=== PATIENT | female | born 1940 | race Caucasian/White ===

== ENCOUNTER 2018-05-15 14:06 | Emergency (ER) | payer MEDICARE, SELFPAY ==
[2018-05-15 14:07] VITALS: BP 172/71; PULSE 79; RESP 16; TEMP 36.5; O2SAT 99
--- NOTE | 2018-05-15 14:11 | ED_ITS ---
HPI - Fall General Chief Complaint: Fall Stated Complaint: GLF Time Seen by Provider: 05/15/18 14:10 Source: EMS Mode of arrival: EMS Limitations: no limitations History of Present Illness HPI Narrative: Patient is a 77-year-old female who presents with head injury. She is walking at [employer] not pain attention when she fell backwards hitting her head. There was no loss of consciousness she denies any blood thinners. No numbness tingling or weakness. She denies any chest pain heart palpitations or other precursor symptoms. She has no other injuries complaining of head pain. Denies any nausea or vomiting. MD complaint: fall Onset (ago): minute(s) Fall from: standing Related Data Home Medications Medication Instructions Recorded Confirmed alendronate [Fosamax] 70 mg PO QWEEK 05/15/18 05/15/18 aspirin 81 mg PO DAILY 05/15/18 05/15/18 bupropion HCl 200 mg PO BID 05/15/18 05/15/18 cholecalciferol (vitamin D3) 1,000 unit PO DAILY 05/15/18 05/15/18 [Vitamin D3] cyanocobalamin (vitamin B-12) 1,000 mcg PO DAILY 05/15/18 05/15/18 [Vitamin B-12] krill oil 1 cap PO DAILY 05/15/18 05/15/18 lorazepam 0.5 mg PO BID PRN 05/15/18 05/15/18 mirabegron [Myrbetriq] 25 mg PO DAILY 05/15/18 05/15/18 vit C,Z-Du-dgyld-lutein-zeaxan 1 cap PO BID 05/15/18 05/15/18 [PreserVision AREDS 2] Allergies Allergy/AdvReac Type Severity Reaction Status Date / Time No Known Drug Allergies Allergy Verified 05/15/18 14:45 Review of Systems Review of Systems All systems reviewed & are unremarkable except as noted in HPI and below Constitutional Denies chills, Denies fever(s), Denies frequent falls, Denies lethargy and Denies weakness Eyes Denies change in vision, Denies diplopia, Denies loss of peripheral vision and Denies loss of vision ENT Ears, Nose, Mouth, and Throat: Denies vertigo, Denies dizziness and Denies neck pain Cardiovascular Denies chest pain, Denies irregular heart rhythm, Denies lightheadedness, Denies palpitations, Denies dyspnea, Denies dyspnea on exertion and Denies orthopnea Respiratory Denies cough, Denies dyspnea, Denies dyspnea on exertion and Denies wheezing Gastrointestinal Gastrointestinal: Denies abdominal pain, Denies change in bowel habits, Denies diarrhea, Denies nausea and Denies vomiting Musculoskeletal Denies neck pain Integumentary/Breasts Reports wounds (On head) Neurologic Denies vertigo, Denies dizziness, Denies frequent falls, Denies loss of vision and Denies weakness Endocrine Denies palpitations Hematologic/Lymphatic Denies easy bleeding and Denies easy bruising Allergic/Immunologic Denies wheezing Exam Initial Vital Signs Initial Vital Signs: Vital Signs Temperature 97.7 F 05/15/18 14:07 Pulse Rate 79 05/15/18 14:07 Respiratory Rate 16 05/15/18 14:07 Blood Pressure 172/71 H 05/15/18 14:07 Pulse Oximetry 99 05/15/18 14:07 GENERAL: Alert elderly female in no acute distress. Able to move herself from [facility] [place] HEENT: Head posterior left-sided scalp hematoma without laceration no crepitations no depression NECK: No vertebral tenderness no step-offs CARDIOVASCULAR: Regular rate and rhythm without murmurs, rubs or gallops. RESPIRATORY: Breath sounds equal bilaterally, no wheezes rales or rhonchi. ABDOMEN: Soft, nontender. Normoactive bowel sounds all 4 quadrants. No guarding or rebound. EXTREMITIES: Normal range of motion, no clubbing or edema. Neurovascularly intact. No gross bony deformities NEUROLOGICAL: Alert and oriented x4.Normal gait and speech. Cranial nerves II through XII grossly intact. Good zfpgva-ic-djxo, good mkas-et-rbfb, strength equal bilaterally, no dysarthria or aphasia, sensation in tact to soft touch bilaterally, no visual changes, no facial droop SKIN: Contusion left posterior head no laceration no other rash or signs of trauma. [facility] Social History Smoking Status: Former smoker Scores NIH Stroke Scale Level of Conciousness: Alert, keenly responsive Ask month/age: Answers both questions correctly. Open/close eyes, close hand: Performs both tasks correctly Best gaze horizontal: Normal Visual ochoa: No visual loss Facial palsy: Normal symetrical movement Left arm drift: No drift for full 10 sec Right arm drift: No drift for full 10 sec Left leg drift: No drift for full 10 sec Right leg drift: No drift for full 10 sec Limb ataxia: Absent Sensory on face/arms/legs: Normal, no sensory loss Best language: No aphasia, normal Dysarthria: Normal Extinction or inattention: No abnormality Total NIH Stroke scale score: 0 Course Orders Ordered: ED Orders 05/15/18 14:10 CT head/brain wo con Stat Vital Signs - 8 hr 05/15/18 14:07 05/15/18 15:31 Temperature 97.7 F Pulse Rate 79 83 Respiratory Rate 16 17 Blood Pressure 172/71 H Blood Pressure [Left Arm] 152/78 H Pulse Oximetry 99 100 MDM - Fall Imaging Data CT scan - head: Radiologist's impression: PROCEDURE: CT HEAD/BRAIN WO CON INDICATIONS: fell back hit head TECHNIQUE: Noncontrast 4.5 mm thick angled axial sections acquired from the foramen magnum to the vertex, with coronal and sagittal reformats. For radiation dose reduction, the following was used: automated exposure control, adjustment of mA and/or kV according to patient size. COMPARISON: None. FINDINGS: Image quality: Excellent. CSF spaces: Basal cisterns are patent. No extra-axial fluid collections. The ventricles are symmetric in size and shape. Brain: No intracranial bleeds or masses. There is cerebral volume loss for age , with resultant ventricular and sulcal prominence. There are periventricular and deep white matter chronic small vessel ischemic changes. There is intracranial internal carotid artery atherosclerosis. Skull and face: Calvarium and visualized facial bones appear intact, without suspicious lesions. There is a large left parietal subgaleal hematoma. Sinuses: Visualized sinuses and mastoids are clear. IMPRESSION: 1. No acute intracranial abnormalities. 2. Cerebral volume loss and chronic microvascular ischemic changes. 3. Large left parietal subgaleal hematoma. Dictated by: Kwabena Webb M.D. on 05/15/2018 at 14:42 Approved by: Kwabena Webb M.D. on 05/15/2018 at 14:44 Discharge Plan Departure Patient Disposition: Home, Self-Care Clinical Impression: Contusion of head Discharge Date/Time: 05/15/18 15:43 Interventions: ED Discharge Assessment Last Done: 05/15/18 15:42 Instructions: Closed Head Injury Activity Restrictions/Additional Instructions: *You have been diagnosed with head contusion, closed head injury *What to do: Ice, rest *Continue to take medications as directed -Tylenol or ibuprofen if needed for pain please take as directed *Follow up with your primary care provider in 2-3 days *Return to ER if you should have persistent vomiting, increasing pain, weakness , or seizure activity or any new, worsening or concerning symptoms Prescriptions: No Action alendronate [Fosamax] 70 mg Tablet 70 mg PO QWEEK RF: 0 cyanocobalamin (vitamin B-12) [Vitamin B-12] 1,000 mcg Tablet 1,000 mcg PO DAILY RF: 0 bupropion HCl 100 mg Tablet Extended Release 12 Hr 200 mg PO BID RF: 0 lorazepam 0.5 mg Tablet 0.5 mg PO BID PRN (Reason: Anxiety) RF: 0 cholecalciferol (vitamin D3) [Vitamin D3] 1,000 unit Tablet 1,000 unit PO DAILY RF: 0 vit C,W-Eo-qxpty-lutein-zeaxan [PreserVision AREDS 2] [id number] mg-unit-mg- mg Capsule 1 cap PO BID RF: 0 krill oil capsule 1 cap PO DAILY RF: 0 aspirin 81 mg Tablet,Delayed Release (Dr/Ec) 81 mg PO DAILY RF: 0 mirabegron [Myrbetriq] 25 mg tablet extended release 24 hr 25 mg PO DAILY RF: 0 Referrals: Marcelino Cooney DO [Non-Staff] -
[2018-05-15 15:31] VITALS: BP 152/78; PULSE 83; RESP 17; O2SAT 100
== END 2018-05-15 15:43 | disposition home or self-care (01) ==
PROVIDERS: Emergency Provider Emergency Medicine
DX: S00.93XA Contusion of unspecified part of head, initial encounter (principal); W01.0XXA Fall on same level from slipping, tripping and stumbling without subsequent striking against object, initial encounter
CPT/HCPCS: 70450; 99282; 99284

== ENCOUNTER 2019-07-16 11:09 | Outpatient (RCR) | payer MEDICARE, SELFPAY ==
--- NOTE | 2019-07-17 16:56 | ST.OPIE ---
Visit Care Team Role Provider Type Marcelino Cooney DO Primary Care Provider Non-Staff Specialty: Family Practice Address: [address] [place] [address] [address], [place], [address] Email: Keith Saucedo MD Attending Provider Physician Specialty: Ear, Nose, Throat Address: [address] [place] [address], [id number] Email: [email or web address] Speech-Language [email or web address] Initial Evaluation ASSISTANT PROFESSOR OF ENGLISH Clinical Swallow Evaluation Start: 07/16/19 17:13 Freq: Status: Active Protocol: Document 07/16/19 17:14 LNK (Rec: 07/16/19 18:18 LNK [id number]) Clinical Swallow Evaluation Session Time Visit Start Time 11:30 Visit Stop Time 12:30 Total Visit Minutes 60 Visit Information Visit Number 1 Plan of Care Dates 07/16/19-10/15/19 Referral Referring Physician Keith Saucedo MD, ENT Reason for Referral Dysphagia Setting Assessment Location Outpatient Care Visit Type Note Type Initial Evaluation Next Note Type Next Note Type Re-Evaluation Patient Information Identification Type Name,Picture History Kathy Martinez was seen for a clinical swallowing evaluation at the referral of Dr. Saucedo . She was accompanied by her , Kelton Martinez. The records provided by Dr. Saucedo , the [facility] as well as Kathy and her were reviewed. Kathy has reported a long history of a tickle sensation in her throat for many years. She has been seen at the [facility] by Drs. Salas and Lewis. On , Dr. salas performed laryngoscopy and noted no obvious pathology. Dr. Salas reported that pt had been taking her PPI as prescribed. Kathy was then seen by Dr Saucedo on 07/08/19, who referred her for a barium swallow study to rule out reflux. She had reported to Dr Saucedo at the time that she thought the PPI was not effective. The results of the barium swallow (06/26/19) indicated a small amount of spontaneous reflux and ineffective stripping wave . Dr. Saucedo then referred Kathy to this clinic/Speech Pathology. He also prescribed a 6 day prednisone taper. Kathy reported to this ASSISTANT PROFESSOR OF ENGLISH that she felt better when using the prednisone and that she wasn't coughing as much. As reported earlier, Kathy has reported a long history of a tickle sensation in her throat resulting in a cough for many years.When asked about the tickle and her coughing, the pt reported that she purposely will cough hard , sometimes to the point of gagging in order to relieve the tickle. She describes that she can't swallow large bites as they will get stuck in her throat and can become painful, pointing to the area below her clavicle. Subjective Observations Pt presented with her . She appeared to be slightly anxious, and was confused as to what speech pathology could do for her. No foods were trialed today as most of the session was spent with the pt, explaining and educating her regarding the normal swallow as well as one with residual pooling in the pharyngeal cavities. Using a digital video model of the swallow process, the results of her barium swallow were described relative to anatomy and the process of the pharyngeal swallow. Evaluation Liquids Trialed [place] Findings Impressions Kathy Martinez presented for an evaluation of her swallowing/chronic cough. She and her attended the session together. Kathy has been diagnosed with silent reflux and is not consistently using her PPIs as she believes she doesn't have reflux. Additionally she has been diagnosed with an ineffective stripping wave. Both of these diagnoses can contribute to the tickle Kathy feels in her throat. As she described, she purposely coughs hard until she can produce some phlegm. As her cough is purposeful and not reflexive, it is doubtful that she is experiencing a laryngospasm or paradoxical vocal fold dysfuntion. However, she is likely experiencing reflux, coupled with the hard coughing she does that have contributed to swollen tissue in her hyolaryngeal area, producing a sense of globus. Her report that the prednisone has helped her throat/cough to feel better would support some swelling. Additionally, with an ineffective stripping wave to control the bolus, there may residual food in her upper esophagus that may be contributing to reflux and a sense of globus. Pooled secretions in her pharynx could also contribute to the tickle she experiences. This is an unknown at this point as he barium swallow did not assess her oropharyngeal phases of her swallowing. A Modified Barium Swallow Study (MBSS) is recommended at this time to determine and/or rule out laryngeal penetration/ aspiration. Treatment Plan Therapy Recommendations MBSS to determine nature of oropharyngeal swallow and help determine best POC
--- NOTE | 2019-08-19 10:40 | ST.IPDYTX ---
Visit Care Team Role Provider Type Marcelino Cooney DO Primary Care Provider Non-Staff Specialty: Family Practice Address: [address] [place] [address], [place], [address] Email: Keith Saucedo MD Attending Provider Physician Specialty: Ear, Nose, Throat Address: [address] [place] [address], [id number] Email: [email or web address] [email or web address] CUTTING PRESS OPERATOR Dysphagia Treatment SPRUE CUTTING PRESS OPERATOR Dysphagia Treatment Start: 07/16/19 17:13 Freq: Status: Active Protocol: Document 08/19/19 10:38 LNK (Rec: 08/19/19 10:40 LNK [id number]) Dysphagia Treatment Visit Type Note Type Discharge Summary Assessment Assessment of Improvement Pt has not been seen since her original assessment appointment. She has no future appointments scheduled. She did not return for MBSS as recommended. Pt will be discharged at this time. Treatment Plan Appropriate for Continued Therapy No: Discharge
== END 2019-08-28 16:36 ==
LOC: SP 11:09
PROVIDERS: PCP Family Medicine; Visit Provider Otolaryngology
DX: R05 Cough (principal); R13.19 Other dysphagia; J39.2 Other diseases of pharynx; R49.0 Dysphonia
CPT/HCPCS: 92610

== ENCOUNTER → 2019-07-31 10:04 | Outpatient (CLI) | payer MEDICARE, SELFPAY ==
--- NOTE | 2019-07-31 | DI.RAD.S_ITS ---
PROCEDURE: FL BARIUM SWALLOW W SPEECH INDICATIONS: DYSPHAGIA TECHNIQUE: Examination was conducted in conjunction with speech pathology per standard protocol. In the lateral projection, filming was performed of the patient swallowing. AP projection filming may also be performed with patient swallowing. COMPARISON: None. FINDINGS: Function: The oral preparatory phase appears normal, with proper containment. The subsequent oral propulsive phase, pharyngeal phase, and esophageal phase of swallowing also appear normal with all proffered substances. No laryngotracheal penetration or aspiration. No pathologic vallecular pooling. Morphology: No cricopharyngeal bar is identified. No cervical esophageal webs. No Zenker's diverticulum. No strictures. IMPRESSION: Negative examination. No evidence of tracheal aspiration. Dictated by: Carlos Toscano M.D. on 07/31/2019 at 13:13 Approved by: Carlos Toscano M.D. on 07/31/2019 at 13:13
--- NOTE | 2019-07-31 16:38 | ST.SWALLOW ---
Visit Care Team Role Provider Type Marcelino Cooney DO Primary Care Provider Non-Staff Specialty: Family Practice Address: [address] [place] [address], [id number] Email: Keith Saucedo MD Attending Provider Physician Specialty: Ear, Nose, Throat Address: [address] [place] [address], [id number] Email: [email or web address] Modified Barium Swallow Study PUBLIC HEALTH REPRESENTATIVE Modified Barium Swallow Study Start: 07/31/19 16:12 Freq: Status: Active Protocol: Document 07/31/19 16:15 JORGE (Rec: 07/31/19 16:37 JORGE [id number]) Modified Barium Swallow Study Total Time Visit Start Time 10:30 Visit Stop Time 11:05 Total Visit Minutes [address] Keith Saucedo Reason for Referral Cough, dysphagia Setting Setting Outpatient Care Patient Information Identification Type Name,ID Card Patient History 79-yr-old female complains of years-long history of a tickle in her throat, trigger unknown, that causes her significant coughing to the point of gagging. She has been seen by [facility] and undergone laryngoscopy with no obvious pathology found. The pt reports having found relief from a 6-day course of Prednisone but with return of symptoms upon completion of prescription. She was referred to outpatient Speech Pathology and seen by Dr. Jessica Mayfield, PUBLIC HEALTH REPRESENTATIVE, on 07/16/19 and recommended MBSS to determine nature of oropharyngeal swallow and guide POC. Subjective Observations The pt arrived on time and provided case history supplement to outpatient PUBLIC HEALTH REPRESENTATIVE records. Patient Positioning Position View Lateral Imaging Lateral View Textures Administered Trials Presented Thin Liquid via Spoon,Thin Liquid via Cup,[place] Liquid via Spoon,[place] Liquid via Cup,Honey Liquid via Spoon, Dysphagia Blenderized Textures, Regular Textures Oral Phase Source: MBSIMP (TM) (C) Bolus Specific Scoring Grid Lip Closure No Impairment (WNL) Tongue Control During Bolus Hold No Impairment (WNL) Bolus Prep/Mastication No Impairment (WNL) Bolus Transport/Lingual Motion No Impairment (WNL) A/P Lingual Propulsion Delay No Oral Residue Mild Impairment Residue Clearing WFL Nasal Regurgitation No Additional Oral Phase Observations Oral Peripheral Exam: Symmetrical features. Mild difficulty coordinating lingual elevation/depression, filling cheeks with air and moving air from cheek to cheek. Mildly reduced lingual strength, consistent with age. Pt has mostly natural dentition with 2 side partials (right and left sides) and missing molars on upper/lower left side. Soft palate elevates upon phonation. Pharyngeal Phase Source: MBSIMP (TM) (C) Bolus Specific Scoring Grid Delayed Initiation of Pharyngeal Swallow No Soft Palate Elevation No Impairment (WNL) Tongue Base Strength/Range of Motion WFL Residue Along the Tongue Base Yes: Mild Clearance of Residue Along Tongue Base WFL Laryngeal Elevation WFL Anterior Hyoid Movement WFL Epiglottic Range of Motion No Impairment (WNL) Vallecular Residue Yes: Trace Clearance of Vallecular Residue WFL Laryngeal Vestibular Closure No Impairment (WNL) Pharyngeal Stripping Wave WFL Posterior Pharyngeal Wall Residue No Upper Esophageal Sphincter Opening No Impairment (WNL) Residue in the Pyriform Sinuses Yes: Trace Clearance of Residue in the Pyriform WFL Sinuses Pharyngoesophageal Backflow Observed No A/P View Esophageal Observations Esophageal Function Not visualized. Clinical Impressions Findings The pt presents with normal swallow function. Trace to mild oral and pharyngeal residue was present with liquid trials and cleared adequately with subsequent swallows. No laryngeal penetration or aspiration was observed with all trials. The pt had no complaints of sticking or tickling sensation throughout the study. The pt was informed of results and recommended to follow up with primary PUBLIC HEALTH REPRESENTATIVE or Dr. Saucedo. Recommendations Diet Liquids Order Thin Diet Order Regular Medication Recommendation As Tolerated Aspiration Precautions Recommended Precautions Upright at 90 Degrees,Small Bites/Sips Treatment Plan Additional Therapy Recommendations Follow up with Dr. Evan Deal (PUBLIC HEALTH REPRESENTATIVE) or Dr. Saucedo ( ENT)
== END ==
PROVIDERS: PCP Family Medicine; Visit Provider Otolaryngology
DX: R13.10 Dysphagia, unspecified (principal)
CPT/HCPCS: 74230; 92611

== ENCOUNTER → 2022-05-13 13:43 | Outpatient (CLI) | payer MEDICARE, SELFPAY ==
--- NOTE | 2022-05-13 13:45 | DI.US.S_ITS ---
PROCEDURE: US PERIPH VENOUS LOW EXTREM LT INDICATIONS: LEFT ANKLE SWELLING TECHNIQUE: Real-time imaging, as well as color and pulse Doppler interrogation, were performed of the lower extremity deep veins from the inguinal ligament to the popliteal fossa. COMPARISON: None. FINDINGS: The common femoral, femoral and popliteal veins are normally compressible, and free of intraluminal thrombus. Color and pulse Doppler demonstrate normal phasic intraluminal flow. There is normal augmentation response to distal compression maneuver. IMPRESSION: Negative for deep venous thrombosis. Dictated by: Xavier Chacon M.D. on 05/13/2022 at 13:44 Approved by: Xavier Chacon M.D. on 05/13/2022 at 13:45
== END ==
PROVIDERS: PCP Family Medicine; Referring Provider Nurse Practitioner Family; Visit Provider Nurse Practitioner Family
DX: M25.472 Effusion, left ankle (principal)
CPT/HCPCS: 93971

== ENCOUNTER → 2023-01-23 15:56 | Outpatient (CLI) | payer MEDICARE, SELFPAY ==
[2023-01-23 16:23] LABS: Add Manual Diff / Slide Review NO; Basophils Absolute Auto 0 /uL (0-100); Eosinophils Absolute Auto 100 /uL (0-450); Eosinophils Percent Auto 2.4 % (2-4); Hematocrit 35.3 % (36-46); Hemoglobin 12.2 g/dL (12.0-16.0); Lymphocytes Absolute Auto 900 /uL (1100-4500); Lymphocytes Percent Auto 21.2 % (25-40); Mean Corpuscular HGB Conc 34.5 % (30-36); Mean Corpuscular Hemoglobin 33.9 PG (26-34); Mean Corpuscular Volume 98.3 fL (80-100); Monocytes Absolute Auto 500 /uL (0-900); Monocytes Percent Auto 11.2 % (3-14); Neutrophils Absolute Auto 2800 /uL (1500-7000); Neutrophils Percent Auto 64.2 % (50-75); Platelet Count 220 X10^3/uL (150-400); Red Blood Cell Count 3.59 X10^6/uL (4.0-5.2); Red Cell Distribution Width 13.2 % (11.6-14.8); White Blood Cell Count 4.3 X10^3/uL (4.5-11.0)
[2023-01-23 17:07] LABS: Alanine Aminotransferase 18 IU/L (<35); Albumin Globulin Ratio 1.4 (1.0-2.8); Alkaline Phosphatase 83 U/L (38-126); Aspartate Aminotransferase 26 IU/L (14-36); BUN Creatinine Ratio 29.3 (6-22); Bilirubin Total 0.3 mg/dL (0.2-1.3); Blood Urea Nitrogen 24 mg/dL (7-17); Calcium 9.4 mg/dL (8.4-10.2); Carbon Dioxide 32 mmol/L (22-32); Chloride 101 mmol/L (98-107); Estimated Glomerular Filt Rate > 60 mL/min (>60); Globulin 2.8 g/dL (1.7-4.1); Glucose 88 mg/dL (80-110); HEMOLYSIS < 15 (0-50); Magnesium 2.2 mg/dL (1.6-2.3); Potassium 4.5 mmol/L (3.4-5.1); Sodium 136 mmol/L (137-145); Total Protein 6.8 g/dL (6.3-8.2)
[2023-01-23 17:20] LABS: Free T3, Triiodothyronine Free 3.25 pg/mL (2.77-5.27); Free T4, Direct Thyroxine 1.18 ng/dL (0.78-2.19)
[2023-01-23 17:34] LABS: Thyroid Stimulating Hormone 1.07 uIU/mL (0.47-4.68)
== END ==
PROVIDERS: PCP Nurse Practitioner; Referring Provider Nurse Practitioner; Visit Provider Nurse Practitioner
DX: R55 Syncope and collapse (principal); R00.2 Palpitations
CPT/HCPCS: 36415; 80053; 83735; 84439; 84443; 84481; 85025; 93005

== ENCOUNTER → 2023-02-06 14:38 | Outpatient (CLI) | payer MEDICARE, SELFPAY ==
--- NOTE | 2023-02-06 14:39 | DI.ECHO.S_ITS ---
[facility] +---------+ : : [address] : : : : [id number] : : : : Phone: [phone]+ Echocardiogram Report + + :Name: CHELSEY HARLEY Study Date: 02/06/2023 Height: 62 in : :[facility] ReadingLocation: Weight: 108 lb : : Gender: Female BSA: 1.5 m2 : :: 1940 Age: 82 yrs BP: 148/85 mmHg: :Reason For Study: SYNCOPE AND COLLAPSE HR: 73 : :Ordering Physician: VIPUL, : :SANA Performed By: RENETTA TINAJERO : :Referring: SANA MATTHEW : + + Interpretation Summary Normal left ventricle size with ejection fraction 60-65%. Proximal septal thickening is noted. Mildly dilated right atrium. Mild aortic regurgitation. Mild mitral regurgitation. Mild tricuspid regurgitation. Procedure: A two-dimensional transthoracic echocardiogram with color flow and Doppler was performed. The study quality was technically adequate. There is no prior echocardiogram noted for this patient. The patient was in normal sinus rhythm during the exam. Left Ventricle: The left ventricle is normal in size and wall thickness. Proximal septal thickening is noted. The ejection fraction is estimated to be 60-65%. There are no focal wall motion abnormalities. Right Ventricle: The right ventricle is normal in size and function. Atria: The left atrial size is normal. The right atrium is mildly dilated. There is no Doppler evidence for an interatrial shunt. Mitral Valve: The mitral valve leaflets appear mildly thickened, but open well. There is mild mitral regurgitation. Aortic Valve: The aortic valve is trileaflet. The aortic valve opens well. There is no aortic valve stenosis. There is mild aortic regurgitation. Tricuspid Valve: Tricuspid leaflets are thickened. There is mild tricuspid regurgitation. The right ventricular systolic pressure is estimated to be at least 27 mmHg based on an estimated right atrial pressure of 3 mm Hg. Pulmonic Valve: The pulmonic valve leaflets are thin and pliable; valve motion is normal. There is mild pulmonic regurgitation. Great Vessels: The aortic root is normal size. The ascending aorta is normal in size. The IVC is of normal diameter and collapses greater than 50% with a sniff. This suggests a low right atrial pressure of 3 mm Hg. Pericardium/ Pleura There is a trivial pericardial effusion noted. There is no pleural effusion. MMode/2D Measurements & Calculations LVIDd: 3.5 cm LVOT diam: 2.0 cm LVIDs: 2.5 cm Ao root diam: 3.5 cm FS: 28.8 % asc Aorta Diam: 3.1 cm IVSd: 0.78 cm LVPWd: 0.85 cm LV taylor. diameter/BSA (cm/m^2): 2.4 LV sys. diameter/BSA (cm/m^2): 1.7 LA A2 area: 15.3 cm2 RA long axis: 5.0 cm LA A4 area: 11.0 cm2 RA area: 15.2 cm2 LA length (vol): 3.6 cm RA vol: 38.8 ml LA vol: 39.8 ml RA : 26.4 ml/m2 LA vol index: 27.0 ml/m2 TAPSE: 2.4 cm Doppler Measurements & Calculations Ao V2 max: 109.5 cm/sec LVOT Max Umberto: 118.0 cm/sec Ao V2 mean: 79.7 cm/sec LV V1 max P.6 mmHg Ao max P.8 mmHg LV V1 VTI: 24.6 cm Ao mean P.8 mmHg BARBY(I,D): 3.2 cm2 Ao V2 VTI: 25.2 cm BARBY(V,D): 3.5 cm2 sev ratio: 0.98 BARBY indexed to BSA (cm^2/m^2): 2.2 AI P1/2t: 402.9 msec AI dec slope: 290.0 cm/sec2 MV E max umberto: 102.2 cm/sec TR max umberto: 243.6 cm/sec MV A max umberto: 77.6 cm/sec TR max P.7 mmHg MV E/A: 1.3 PA V2 max: 70.9 cm/sec Med Peak E' Umberto: 6.6 cm/sec PA V2 mean: 55.9 cm/sec E/E' med: 15.4 PA mean P.3 mmHg Lat Peak E' Umberto: 6.3 cm/sec PA pr(Accel): 10.5 mmHg E/E' lat: 16.3 E/e' average: 15.9 MV dec time: 0.20 sec SV([facility]): 80.8 ml Electronically signed by: Ayesha Addison on Reading Physician:02/06/2023 04:07 PM
== END ==
PROVIDERS: PCP Nurse Practitioner; Referring Provider Nurse Practitioner; Visit Provider Nurse Practitioner
DX: R55 Syncope and collapse (principal); R00.2 Palpitations; I08.3 Combined rheumatic disorders of mitral, aortic and tricuspid valves
CPT/HCPCS: 93306

== ENCOUNTER → 2023-02-08 13:53 | Outpatient (CLI) | payer MEDICARE, SELFPAY | PROVIDERS: PCP Nurse Practitioner; Referring Provider Nurse Practitioner; Visit Provider Nurse Practitioner | DX: R55 Syncope and collapse (principal); R00.2 Palpitations | CPT/HCPCS: 93246 ==

== ENCOUNTER → 2023-04-15 15:57 | Outpatient (CLI) | payer MEDICARE, SELFPAY ==
--- NOTE | 2023-04-15 16:00 | DI.RAD.S_ITS ---
PROCEDURE: XR FOOT LT MIN 3V INDICATIONS: Left foot pain after fall TECHNIQUE: 3 views of the foot were acquired. COMPARISON: None. FINDINGS: Bones: Generalized decreased osseous mineralization noted. Healed fractures involving the 3rd 4th and 5th metatarsal necks. No evidence of acute displaced fracture Soft tissues: No tibiotalar joint effusion. Achilles tendon appears normal. IMPRESSION: Old healed metatarsal fractures. No evidence of acute displaced fracture. Osteopenia Approved by: Jeremy Vasques M.D. on 04/15/2023 at 15:43
== END ==
PROVIDERS: PCP Nurse Practitioner; Referring Provider Physician Assistant; Visit Provider Physician Assistant
DX: S99.922A Unspecified injury of left foot, initial encounter (principal); M85.872 Other specified disorders of bone density and structure, left ankle and foot; W19.XXXA Unspecified fall, initial encounter
CPT/HCPCS: 73630

== ENCOUNTER → 2023-05-08 15:52 | Outpatient (CLI) | payer MEDICARE, SELFPAY ==
--- NOTE | 2023-05-08 16:16 | DI.MRI.S_ITS ---
PROCEDURE: MR FOOT RT WO CON INDICATIONS: Unspecified injury of right foot TECHNIQUE: Noncontrast sagittal T1 spin echo and T2 fast spin echo with fat saturation, long-axis T1 spin echo and T2 fast spin echo with fat saturation, short-axis T1 spin echo and T2 fast spin echo with fat saturation through the forefoot. COMPARISON: [facility], CR, XR FOOT LT MIN 3V, 04/15/2023, 15:56. FINDINGS: Image quality: Excellent. Bones and joints: Osseous edema is seen at the 3rd metatarsal neck involving the metatarsal head and extending proximally to the mid metatarsal shaft. There are suspected incomplete fracture lines at the lateral metatarsal neck and at the dorsal aspect of the metatarsal head. No collapse of the metatarsal head articular surface is seen. Remote prior 4th metatarsal neck fracture appears healed. Moderate degenerative changes are seen at the 1st metatarsophalangeal joint with subchondral cystic changes and marginal osteophyte formation. Scattered degenerative changes are seen at the interphalangeal joints of the toes. Hallux sesamoids are normally aligned. Soft tissues: Nonspecific soft tissue edema is seen throughout the dorsum of the forefoot. Subcutaneous edema is also noted at the plantar aspect of the foot at the level of the metatarsal shafts. The visualized plantar foot muscles demonstrate normal signal and bulk. Visualized flexor and extensor tendons appear intact, without tenosynovitis. The distal insertions of the peroneus brevis and longus tendons appear intact. The principal Lisfranc ligament appears intact. Sagittal images demonstrate no evidence for plantar plate tears. IMPRESSION: 1. Suspected incomplete fracture at the 3rd metatarsal neck extending to the dorsal aspect of the 3rd metatarsal head with surrounding osseous soft tissue edema. No collapse of the distal metatarsal head articular surface. 2. Remote prior healed 4th metatarsal neck fracture. 3. Moderate degenerative changes at the 1st metatarsophalangeal joint. Approved by: Carlos Cox M.D. on 05/09/2023 at 10:13
== END ==
PROVIDERS: PCP Nurse Practitioner; Referring Provider Podiatrist; Visit Provider Podiatrist
DX: S99.921A Unspecified injury of right foot, initial encounter (principal); X58.XXXA Exposure to other specified factors, initial encounter
CPT/HCPCS: 73718

== ENCOUNTER → 2023-05-22 16:19 | Outpatient (CLI) | payer MEDICARE, SELFPAY ==
[2023-05-22 17:20] LABS: Alanine Aminotransferase 19 IU/L (<35); Albumin 3.9 g/dL (3.5-5.0); Albumin Globulin Ratio 1.4 (1.0-2.8); Alkaline Phosphatase 87 U/L (38-126); Aspartate Aminotransferase 30 IU/L (14-36); BUN Creatinine Ratio 25.8 (6-22); Bilirubin Total 0.3 mg/dL (0.2-1.3); Blood Urea Nitrogen 23 mg/dL (7-17); Calcium 9.1 mg/dL (8.4-10.2); Carbon Dioxide 32 mmol/L (22-32); Chloride 98 mmol/L (98-107); Estimated Glomerular Filt Rate > 60 mL/min (>60); Globulin 2.8 g/dL (1.7-4.1); Glucose 94 mg/dL (80-110); HEMOLYSIS < 15 (0-50); Potassium 4.3 mmol/L (3.4-5.1); Sodium 135 mmol/L (137-145); Total Protein 6.7 g/dL (6.3-8.2)
[2023-05-22 17:32] LABS: HEMOLYSIS 18 (0-50); Iron 82 ug/dL (37-170)
[2023-05-22 17:33] LABS: Basophils Absolute Auto 100 /uL (0-100); Eosinophils Absolute Auto 100 /uL (0-450); Eosinophils Percent Auto 2.3 % (2-4); Hematocrit 34.4 % (36-46); Hemoglobin 11.8 g/dL (12.0-16.0); Lymphocytes Absolute Auto 1000 /uL (1100-4500); Lymphocytes Percent Auto 19.8 % (25-40); Mean Corpuscular HGB Conc 34.2 % (30-36); Mean Corpuscular Hemoglobin 33.7 PG (26-34); Mean Corpuscular Volume 98.5 fL (80-100); Monocytes Absolute Auto 600 /uL (0-900); Monocytes Percent Auto 10.9 % (3-14); Neutrophils Absolute Auto 3300 /uL (1500-7000); Red Blood Cell Count 3.49 X10^6/uL (4.0-5.2); Red Cell Distribution Width 12.9 % (11.6-14.8); White Blood Cell Count 5.1 X10^3/uL (4.5-11.0)
[2023-05-22 17:42] LABS: Percent Iron Saturation 29 % (15-50); Total Iron Binding Capacity 287 ug/dL (265-497); Transferrin 226 mg/dL (206-381)
[2023-05-22 17:44] LABS: Add Manual Diff / Slide Review SLIDE REVIEW
[2023-05-22 17:46] LABS: Platelet Estimate Adequate on smear
[2023-05-22 18:09] LABS: Vitamin B12 907 pg/mL (239-931)
== END ==
PROVIDERS: PCP Nurse Practitioner; Referring Provider Nurse Practitioner; Visit Provider Nurse Practitioner
DX: D64.9 Anemia, unspecified (principal); D51.9 Vitamin B12 deficiency anemia, unspecified; M81.0 Age-related osteoporosis without current pathological fracture; Z79.899 Other long term (current) drug therapy
CPT/HCPCS: 36415; 80053; 82607; 83540; 83550; 85025

== ENCOUNTER → 2023-09-26 15:06 | Outpatient (CLI) | payer MEDICARE, SELFPAY ==
--- NOTE | 2023-09-26 15:06 | DI.RAD.S_ITS ---
Bone Density Report Name: CHELSEY HARLEY Age: 83 Sex: Female Ethnicity: White Date of : 1940 Indication: postmenopausal; screening for osteoporosis; prior fracture; Referring Provider: SANA MATTHEW Study: Bone densitometry was performed. Exam Date: September 26, 2023 Accession number: [id number] Bone Density: Region BMD T-score Z-score Classification AP Spine(L1, L3) 0.787 -2.1 0.7 Osteopenia Femoral Neck (Left) 0.609 -2.2 0.3 Osteopenia Total Hip (Left) 0.593 -2.9 -0.6 Osteoporosis Femoral Neck (Right) 0.579 -2.4 0.1 Osteopenia Total Hip (Right) 0.613 -2.7 -0.4 Osteoporosis Total Hip Mean 0.603 -2.8 -0.5 Osteoporosis World Health Organization criteria for BMD impression classify patients as: Normal (T-score at or above -1.0), Osteopenia (T-score between -1.0 and -2.5), or Osteoporosis (T-score at or below -2.5). 10-year Fracture Risk: FRAX not reported because: Some T-score for Spine Total or Hip Total or Femoral Neck at or below -2.5 Prior hip or vertebral fracture Treated for osteoporosis Impression: The patient has established osteoporosis, based on the Left Total Hip T-score and the existence of a prior fracture. The patient has risk factors, including: previous fracture. Discussion: It is important to ask patients whether they are taking their medications and to encourage continued and appropriate compliance with their osteoporosis therapies to reduce fracture risk. It is also important to review their risk factors and encourage appropriate calcium and vitamin D intakes, exercise, fall prevention and other lifestyle measures. Follow-Up: Consider a repeat BMD and Vertebral Fracture Assessment (VFA) exam in 2 years or sooner if medically necessary, to reassess this patient's status. Reported by: KELLY ESPINAL M.D. on 09/26/2023 3:33:00 PM.
== END ==
PROVIDERS: PCP Nurse Practitioner; Referring Provider Nurse Practitioner; Visit Provider Nurse Practitioner
DX: M81.0 Age-related osteoporosis without current pathological fracture (principal); I10 Essential (primary) hypertension; M85.89 Other specified disorders of bone density and structure, multiple sites
CPT/HCPCS: 36415; 77080; 80048; 83735

== ENCOUNTER → 2023-09-26 15:41 | Outpatient (CLI) | payer MEDICARE, SELFPAY ==
[2023-09-26 16:55] LABS: BUN Creatinine Ratio 26.6 (6-22); Blood Urea Nitrogen 25 mg/dL (7-17); Calcium 9.6 mg/dL (8.4-10.2); Carbon Dioxide 33 mmol/L (22-32); Chloride 90 mmol/L (98-107); Estimated Glomerular Filt Rate 60 mL/min (>60); Glucose 115 mg/dL (80-110); HEMOLYSIS < 15 (0-50); Magnesium 2.2 mg/dL (1.6-2.3); Potassium 3.2 mmol/L (3.4-5.1); Sodium 130 mmol/L (137-145)
== END ==
PROVIDERS: PCP Nurse Practitioner; Referring Provider Family Medicine; Visit Provider Family Medicine
DX: I10 Essential (primary) hypertension (principal)
CPT/HCPCS: 36415; 80048; 83735

== ENCOUNTER → 2023-10-05 16:05 | Outpatient (CLI) | payer MEDICARE, SELFPAY ==
[2023-10-05 18:22] LABS: BUN Creatinine Ratio 24.4 (6-22); Blood Urea Nitrogen 20 mg/dL (7-17); Calcium 9.1 mg/dL (8.4-10.2); Carbon Dioxide 27 mmol/L (22-32); Chloride 100 mmol/L (98-107); Estimated Glomerular Filt Rate > 60 mL/min (>60); Glucose 73 mg/dL (80-110); HEMOLYSIS < 15 (0-50); Magnesium 2.4 mg/dL (1.6-2.3); Potassium 4.4 mmol/L (3.4-5.1); Sodium 136 mmol/L (137-145)
== END ==
PROVIDERS: PCP Nurse Practitioner; Referring Provider Nurse Practitioner; Visit Provider Nurse Practitioner
DX: I10 Essential (primary) hypertension (principal); E87.1 Hypo-osmolality and hyponatremia; E87.6 Hypokalemia
CPT/HCPCS: 36415; 80048; 83735

== ENCOUNTER → 2023-10-13 13:06 | Outpatient (CLI) | payer MEDICARE, SELFPAY ==
--- NOTE | 2023-10-13 | DI.MRI.S_ITS ---
PROCEDURE: MRFOOT LT WO CON INDICATIONS: Unspecified superficial injury of left foot, subse TECHNIQUE: Noncontrast sagittal T1 spin echo and T2 fast spin echo with fat saturation, long-axis T1 spin echo and T2 fast spin echo with fat saturation, short-axis T1 spin echo and T2 fast spin echo with fat saturation through the forefoot. COMPARISON: None. FINDINGS: Image quality: Excellent. Bones and joints: There is marrow edema involving mid to distal 3rd metatarsal shaft and neck. No definite fracture line is seen. No significant periosteal reaction. Mild edema is also noted involving 2nd and 4th metatarsal necks without definite fracture line or cortical disruption. Osteoarthritic changes are noted throughout midfoot and forefoot joints. No suspicious bony lesion. Soft tissues: The visualized plantar foot muscles demonstrate normal signal and bulk. Visualized flexor and extensor tendons appear intact, without tenosynovitis. The distal insertions of the peroneus brevis and longus tendons appear intact. The principal Lisfranc ligament appears intact. No soft tissue ganglion cysts or bursal fluid collections. Sagittal images demonstrate no evidence for plantar plate tears. IMPRESSION: 1. Subtle marrow edema involving mid to distal shaft of 3rd metatarsal bone and 3rd metatarsal neck as well as 2nd and 4th metatarsal necks without definite fracture line. Finding may represent stress related changes. Early stress fracture cannot be entirely excluded. Clinical correlation and radiographic follow-up is recommended. 2. Midfoot and forefoot joint osteoarthritis. No other fracture or dislocation. 3. Tendons and ligaments of midfoot and forefoot are grossly intact. No definite focal plantar plate tear. Dictated by: Robert Han M.D. on 10/13/2023 at 16:02 Approved by: Robert Han M.D. on 10/13/2023 at 16:05
== END ==
PROVIDERS: PCP Nurse Practitioner; Referring Provider Podiatrist; Visit Provider Podiatrist
DX: S90.922D Unspecified superficial injury of left foot, subsequent encounter (principal); M19.072 Primary osteoarthritis, left ankle and foot; R60.0 Localized edema; X58.XXXD Exposure to other specified factors, subsequent encounter
CPT/HCPCS: 73718

== ENCOUNTER → 2023-11-29 11:31 | Outpatient (CLI) | payer MEDICARE, SELFPAY ==
[2023-11-29 12:26] LABS: BUN Creatinine Ratio 24.4 (6-22); Blood Urea Nitrogen 19 mg/dL (7-17); Calcium 9.3 mg/dL (8.4-10.2); Carbon Dioxide 30 mmol/L (22-32); Chloride 99 mmol/L (98-107); Cholesterol 211 mg/dL (140-199); Estimated Glomerular Filt Rate > 60 mL/min (>60); Glucose 86 mg/dL (80-110); HDL Cholesterol 63 mg/dL (40-60); HEMOLYSIS < 15 (0-50); LDL Cholesterol Calculated 132 mg/dL (<100); Potassium 4.2 mmol/L (3.4-5.1); Sodium 135 mmol/L (137-145); Triglycerides 82 mg/dL (35-150)
== END ==
LOC: LAB 11:33
PROVIDERS: PCP Nurse Practitioner; Referring Provider Internal Medicine Cardiovascular Disease; Visit Provider Internal Medicine Cardiovascular Disease
DX: R07.89 Other chest pain (principal); I73.9 Peripheral vascular disease, unspecified; I48.0 Paroxysmal atrial fibrillation
CPT/HCPCS: 36415; 80048; 80061

== ENCOUNTER → 2023-12-30 16:39 | Outpatient (CLI) | payer MEDICARE, SELFPAY ==
--- NOTE | 2023-12-30 16:41 | DI.RAD.S_ITS ---
PROCEDURE: XR THORACIC SPINE 2V INDICATIONS: Bruising left back TECHNIQUE: 3 views of the thoracic spine were acquired. COMPARISON: [facility], CT, CT CHEST WITHOUT CONTRAST, 12/18/2023, 17:35. FINDINGS: Bones: No acute fractures or dislocations. No suspicious bony lesions. 12 pairs of ribs are noted, and appear intact where visualized. Stable chronic T12 anterior compression deformity. Diffuse osteopenia. Soft tissues: No paravertebral stripe thickening. IMPRESSION: Stable chronic anterior T12 vertebral body compression deformity. Redemonstration of age-indeterminate anterior compression deformity of L2 is better seen on dedicated lumbar spine series from same day. Please see separate report for details. Dictated by: Tawanda Beth M.D. on 12/30/2023 at 18:19 Approved by: Tawanda Beth M.D. on 12/30/2023 at 18:21
--- NOTE | 2023-12-30 16:41 | DI.RAD.S_ITS ---
PROCEDURE: XR LUMBAR SPINE 2-3V INDICATIONS: Fall onto bottom 9 days ago TECHNIQUE: 3 views of the lumbar spine were acquired. COMPARISON: [facility], CT, CT ABDOMEN PELVIS WITH CONTRAST, 11/13/2020, 19:02. [facility], CT, CT CHEST WITHOUT CONTRAST, 12/18/2023, 17:35. FINDINGS: Bones: 5 [id number] vertebrae are present. There is stable bony alignment with levoscoliosis of the lumbar spine. Diffuse osteopenia. Stable chronic appearing anterior compression fracture of T12. Age-indeterminate anterior compression deformity of L2 with approximately 20% loss of the anterior vertebral body height. No evidence for retropulsion of the posterior elements of the vertebral body. No suspicious bony lesions. Multilevel spondylosis. Soft tissues: Overlying bowel gas pattern is normal. No suspicious soft tissue calcifications. IMPRESSION: Age-indeterminate anterior compression deformity of the L2 vertebral body which is new compared to November 13, 2020 CT and unchanged compared to December 18, 2023. Diffuse osteopenia. Dictated by: Tawanda Beth M.D. on 12/30/2023 at 18:13 Approved by: Tawanda Beth M.D. on 12/30/2023 at 18:19
--- NOTE | 2023-12-30 16:41 | DI.RAD.S_ITS ---
PROCEDURE: XR SACRUM COCCYX MIN 2V INDICATIONS: Fall onto bottom TECHNIQUE: 3 views of the sacrum and coccyx acquired. COMPARISON: None. FINDINGS: Bones: No fractures or dislocations. No suspicious bony lesions. Diffuse osteopenia. Lower lumbar spondylosis. Soft tissues: Visualized bowel gas pattern is normal. No suspicious soft tissue densities. IMPRESSION: No radiographic evidence for fracture or dislocation of the sacrum or coccyx. If there is persistent high clinical concern for occult fracture, further evaluation with CT can be considered. Dictated by: Tawanda Beth M.D. on 12/30/2023 at 18:21 Approved by: Tawanda Beth M.D. on 12/30/2023 at 18:22
== END ==
LOC: RAD 16:41
PROVIDERS: PCP Nurse Practitioner; Referring Provider Physician Assistant; Visit Provider Physician Assistant
DX: T14.8XXA Other injury of unspecified body region, initial encounter (principal); M85.88 Other specified disorders of bone density and structure, other site; M47.816 Spondylosis without myelopathy or radiculopathy, lumbar region; M43.8X6 Other specified deforming dorsopathies, lumbar region; M43.8X4 Other specified deforming dorsopathies, thoracic region; W19.XXXA Unspecified fall, initial encounter
CPT/HCPCS: 72070; 72100; 72220

== ENCOUNTER → 2024-03-28 13:49 | Outpatient (CLI) | payer MEDICARE, SELFPAY ==
[2024-03-28 16:36] LABS: BUN Creatinine Ratio 31.6 (6-22); Blood Urea Nitrogen 24 mg/dL (7-17); Calcium 9.1 mg/dL (8.4-10.2); Carbon Dioxide 31 mmol/L (22-32); Chloride 97 mmol/L (98-107); Estimated Glomerular Filt Rate > 60 mL/min (>60); Glucose 79 mg/dL (80-110); HEMOLYSIS 73 (0-50); Potassium 4.8 mmol/L (3.4-5.1); Sodium 132 mmol/L (137-145)
== END ==
PROVIDERS: PCP Nurse Practitioner; Referring Provider Internal Medicine Cardiovascular Disease; Visit Provider Internal Medicine Cardiovascular Disease
DX: E87.1 Hypo-osmolality and hyponatremia (principal)
CPT/HCPCS: 36415; 80048; 83930

== ENCOUNTER → 2024-04-17 10:15 | Outpatient (CLI) | payer MEDICARE, SELFPAY ==
--- NOTE | 2024-04-17 | DI.NM.S_ITS ---
PROCEDURE: NM JEANETTE PERF SPECT R&S PHARM Rest and pharmacological stress myocardial perfusion SPECT with gated imaging and ejection fraction RADIOPHARMACEUTICAL: 12.5 mCi Tc-99m tetrafosmin IV at rest and 26.0 mCi Tc-99m tetrafosmin IV at peak effect of pharmacological stress. A [id number] was performed. INDICATIONS: Paroxysmal atrial fibrillation TECHNIQUE: Radiopharmaceutical was injected at peak stress test, and also at rest. SPECT images were obtained. SPECT myocardial perfusion images were displayed in short axis, horizontal long axis, and vertical long axis views. Gated images were reviewed using [employer] software. COMPARISON: None. CARDIAC STRESS: A pharmacologic stress test was performed under the supervision of an attending staff, using an infusion of regadenoson 0.4 mg IV. Hemodynamic data: There is normal blood pressure and heart rate response to pharmacologic stress. Symptoms: The patient denied anginal chest pain. EKG: No diagnostic changes of ischemia; no ectopy. FINDINGS: Raw data: There is good myocardial uptake of radiotracer. No significant motion artifacts. Yxur-xg-ijzzb ratio is 0.33 (normal is less than 0.38 for tetrafosmin tracer). Left ventricle function: Gated images demonstrate normal left ventricular wall thickening. No segmental wall motion abnormalities. No transient ischemic dilation; TID is 0.90 (normal less than 1.3). Left ventricle resting end diastolic volume is 81 mL. Left ventricle stress ejection fraction is >75%; normal range is above 45%. Myocardial perfusion: There is normal distribution of activity in the right and left ventricular myocardium. No fixed or reversible perfusion defects. IMPRESSION: Low risk study. No evidence of pharmacologic induced ischemia or scar. Normal LV size with hyperdynamic function. Dictated by: Yusra Portillo D.O. on 04/18/2024 at 17:24 Approved by: Yusra Portillo D.O. on 04/18/2024 at 17:26
== END ==
PROVIDERS: PCP Nurse Practitioner; Referring Provider Internal Medicine Cardiovascular Disease; Visit Provider Internal Medicine Cardiovascular Disease
DX: I48.0 Paroxysmal atrial fibrillation (principal); I73.9 Peripheral vascular disease, unspecified; I10 Essential (primary) hypertension
CPT/HCPCS: 78452; 93017; A9502; J2785

== ENCOUNTER → 2024-04-25 11:40 | Outpatient (CLI) | payer MEDICARE, SELFPAY ==
--- NOTE | 2024-04-25 11:41 | DI.US.S_ITS ---
PROCEDURE: US CAROTID DOPPLER BI INDICATIONS: LEFT JUGULAR VEIN THROMBOSIS TECHNIQUE: Color and pulse Doppler interrogation was performed of both carotid systems, with image documentation and velocity measurements. COMPARISON: None. FINDINGS: Stenosis calculations are based on SRU (Society of Radiologists in Ultrasound) criteria. Right side: Brachial blood pressure: 142/65 mm Hg. Common carotid artery peak systolic velocity: 93 cm/sec. Internal carotid artery peak systolic velocity: 118 cm/sec. Internal carotid artery end diastolic velocity: 28 cm/sec. External carotid artery peak systolic velocity: 68 cm/sec. ICA/CCA peak systolic ratio: 1.3 . Blackwell scale imaging description: Minimal atherosclerotic plaque Percent internal carotid artery stenosis: Less than 50% . Vertebral artery: Flow direction is antegrade. Left side: Brachial blood pressure: 130/68 mm Hg. Common carotid artery peak systolic velocity: 89 cm/sec. Internal carotid artery peak systolic velocity: 94 cm/sec. Internal carotid artery end diastolic velocity: 25 cm/sec. External carotid artery peak systolic velocity: 52 cm/sec. ICA/CCA peak systolic ratio: 1.1 . Blackwell scale imaging description: Minimal atherosclerotic plaque Percent internal carotid artery stenosis: Less than 50% . Vertebral artery: Flow direction is antegrade. IMPRESSION: Less than 50% stenosis of the internal carotid arteries by peak systolic velocity criteria. Dictated by: Francisco J Diaz M.D. on 04/25/2024 at 14:48 Approved by: Francisco J Diaz M.D. on 04/25/2024 at 14:49
== END ==
PROVIDERS: PCP Nurse Practitioner; Referring Provider Internal Medicine Cardiovascular Disease; Visit Provider Internal Medicine Cardiovascular Disease
DX: I82.890 Acute embolism and thrombosis of other specified veins (principal); I65.23 Occlusion and stenosis of bilateral carotid arteries; E87.1 Hypo-osmolality and hyponatremia
CPT/HCPCS: 93880

== ENCOUNTER → 2024-05-22 15:57 | Outpatient (CLI) | payer MEDICARE, SELFPAY ==
--- NOTE | 2024-05-22 15:58 | DI.MRI.S_ITS ---
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 In cases with scoliosis, additional coronal T2 fast spin echo may be performed. COMPARISON: None. FINDINGS: Image quality: Excellent. Alignment and Curvature: There is levoconvex scoliosis of the lumbar spine. There is straightening of lumbar lordosis. Bone: Remote compression deformity of the T12 vertebral body resulting in approximately 50 percent loss. Remote compression deformity of a in a L2 resulting in approximately 50 percent height loss. There is a Schmorl node along the inferior endplate of L4. Bone Marrow: Marrow is of normal overall signal. No acute vertebral body compression fractures. Intervertebral discs: Multilevel disc desiccation with areas for height loss. Spinal Cord: Conus medullaris terminates at the L1 level. Visualized cord demonstrates normal signal and size. Paraspinous Soft Tissues: No paravertebral masses. There is a 1.1 centimeter T2 hyperintense lesion within the posterior right hepatic lobe which most likely represent a cyst. Bilateral subcentimeter T2 hyperintense renal lesions which likely represent cysts. There is diffuse fatty atrophy of the paraspinal muscles. T12-L1: No spinal canal stenosis. Mild bilateral foraminal narrowing. There is bilateral facet arthropathy and ligamentum flavum hypertrophy. L1-L2: Shallow dorsal disc bulge mildly effaces the ventral thecal sac. Mild bilateral foraminal narrowing. There is bilateral facet arthropathy and ligamentum flavum hypertrophy. L2-L3: There is a dorsal disc bulge that mildly effaces the ventral thecal sac. There is a small left subarticular disc protrusion that mildly effaces the left neural foramen. No significant right foraminal stenosis. There is bilateral facet arthropathy and ligamentum flavum hypertrophy. L3-L4: Dorsal disc bulge and ligamentum flavum hypertrophy result in moderate to severe spinal canal stenosis. Mild bilateral foraminal narrowing. Bilateral facet arthropathy. L4-L5: Small central disc extrusion and ligamentum flavum hypertrophy result in moderate spinal canal stenosis. There is a dorsal annular tear at the base of the disc extrusion a. Mild bilateral foraminal narrowing. There is bilateral facet arthropathy. L5-S1: Dorsal disc bulge mildly effaces the ventral thecal sac. Mild bilateral foraminal narrowing. IMPRESSION: 1. Multilevel degenerative disc disease as described above. The worst level is at L3-L4 where there is moderate to severe spinal canal stenosis secondary to a dorsal disc bulge and ligamentum flavum hypertrophy. 2. At the L4-L5 level, there is moderate spinal canal stenosis secondary to small central disc extrusion and ligamentum flavum hypertrophy. There is air in annular tear at the base of the disc extrusion. 3. Remote compression deformities at T12 and L2 which result and approximately 50 percent height loss. 4. There is levoconvex scoliosis of the lumbar spine. 5. There straightening of lumbar lordosis. This finding can be seen in patients with muscle spasms. 6. There is a 1.1 cm T2 hyperintense lesion within the posterior right hepatic lobe and bilateral subcentimeter lesions within both kidneys. These are likely cysts. Dictated by: Blue Shelley M.D. on 05/23/2024 at 10:09 Approved by: Blue Shelley M.D. on 05/23/2024 at 11:00
== END ==
PROVIDERS: PCP Nurse Practitioner; Referring Provider Physical Medicine & Rehabilitation; Visit Provider Physical Medicine & Rehabilitation
DX: M47.816 Spondylosis without myelopathy or radiculopathy, lumbar region (principal); M51.36 Other intervertebral disc degeneration, lumbar region; M51.37 Other intervertebral disc degeneration, lumbosacral region; M48.061 Spinal stenosis, lumbar region without neurogenic claudication; M48.07 Spinal stenosis, lumbosacral region; M51.26 Other intervertebral disc displacement, lumbar region; M43.8X4 Other specified deforming dorsopathies, thoracic region; M41.9 Scoliosis, unspecified; K76.9 Liver disease, unspecified; N28.9 Disorder of kidney and ureter, unspecified
CPT/HCPCS: 72148

== ENCOUNTER → 2024-07-06 09:50 | Outpatient (CLI) | payer MEDICARE, SELFPAY ==
--- NOTE | 2024-07-06 09:51 | DI.CT.S_ITS ---
PROCEDURE: CT CHEST WO CON INDICATIONS: CHRONIC THROMBOSIS LT INTERNAL JUGULAR TECHNIQUE: Noncontrast 5 mm thick sections acquired from the pulmonary apices to the posterior costophrenic angles. 1 mm lung window, 5 mm thick coronal and sagittal and 7 mm axial MIP reformats were then acquired. For radiation dose reduction, the following was used: automated exposure control, adjustment of mA and/or kV according to patient size. COMPARISON: [facility], CT, CT CHEST WITHOUT CONTRAST, 12/18/2023, 17:35. FINDINGS: Image quality: Diagnostic. Lower Neck: No enlarged lymph nodes. Thyroid: No thyroid nodules which require sonographic follow up, per consensus guidelines. Axillae: No enlarged lymph nodes. Chest Wall: Unremarkable. Bones: Unchanged L2 compression deformity. Lungs and Pleura: No pneumothorax or pleural effusions. Previously identified scattered pulmonary nodules are unchanged. Heart: Heart size is normal. No pericardial effusion. Thoracic Vessels: The aorta and pulmonary arteries demonstrate normal size. Mediastinum and Tiera: No enlarged lymph nodes. Esophagus: No wall thickening. No hiatal hernia. Upper Abdomen: Visualized upper abdomen solid organs and bowel loops appear normal. IMPRESSION: Unchanged subcentimeter pulmonary nodules previously recommending 6-12 month follow-up. Thrombosis of internal jugular vein is unable to be assessed without contrast. Dictated by: Evelin Lei M.D. on 07/06/2024 at 10:42 Approved by: Evelin Lei M.D. on 07/06/2024 at 10:55
== END ==
LOC: CT 09:50
PROVIDERS: PCP Nurse Practitioner; Referring Provider Internal Medicine Hematology & Oncology; Visit Provider Internal Medicine Hematology & Oncology
DX: I82.C22 Chronic embolism and thrombosis of left internal jugular vein (principal); R91.8 Other nonspecific abnormal finding of lung field
CPT/HCPCS: 71250

== ENCOUNTER → 2024-12-23 16:44 | Outpatient (CLI) | payer MEDICARE, SELFPAY ==
[2024-12-23 18:24] LABS: Appearance Urine UA CLOUDY; Bilirubin Urine UA NEGATIVE (NEGATIVE); Color Urine UA YELLOW; Glucose Urine UA NEGATIVE (Negative); Ketones Urine UA NEGATIVE (NEGATIVE); Leukocyte Esterase Urine UA 3+ (NEGATIVE); Nitrite Urine UA NEGATIVE (Negative); Occult Blood Urine UA 1+ (Negative); Protein Urine UA NEGATIVE (Negative); Specific Gravity Urine UA 1.015 (1.000-1.035); Urobilinogen Urine UA 0.2 E.U./dL (0.2)
[2024-12-23 18:26] LABS: pH Urine UA 6.5 (4.5-8.0)
[2024-12-23 18:38] LABS: Bacteria Urine Few (2-10); Culture Indicated Urine Specimen Cultured; RBC Urine None Seen (0-5/HPF); Squamous Epithelial Cell Urine 0-1 /HPF (0-5/HPF); Urine Volume 10mL (spun); WBC Urine >100/HPF (0-5/HPF)
== END ==
LOC: LAB 16:45
PROVIDERS: PCP Family Medicine; Referring Provider Family Medicine; Visit Provider Family Medicine
DX: N39.0 Urinary tract infection, site not specified (principal)
CPT/HCPCS: 81001; 87077; 87086

== ENCOUNTER → 2025-04-16 16:08 | Outpatient (CLI) | payer MEDICARE, SELFPAY ==
[2025-04-16 21:20] LABS: Alanine Aminotransferase 13 IU/L (<35); Albumin 4.3 g/dL (3.5-5.0); Albumin Globulin Ratio 1.8 (1.0-2.8); Alkaline Phosphatase 74 U/L (38-126); Aspartate Aminotransferase 23 IU/L (14-36); BUN Creatinine Ratio 25.8 (6-22); Bilirubin Total 0.4 mg/dL (0.2-1.3); Blood Urea Nitrogen 24 mg/dL (7-17); Calcium 9.6 mg/dL (8.4-10.2); Carbon Dioxide 29 mmol/L (22-32); Chloride 99 mmol/L (98-107); Estimated Glomerular Filt Rate > 60 mL/min (>60); Globulin 2.4 g/dL (1.7-4.1); Glucose 69 mg/dL (70-99); HEMOLYSIS < 15 (0-50); Potassium 4.7 mmol/L (3.4-5.1); Sodium 135 mmol/L (137-145); Total Protein 6.7 g/dL (6.3-8.2)
== END ==
PROVIDERS: PCP Family Medicine; Referring Provider Family Medicine; Visit Provider Family Medicine
DX: E87.1 Hypo-osmolality and hyponatremia (principal)
CPT/HCPCS: 80053

== ENCOUNTER → 2025-05-30 15:29 | Outpatient (CLI) | payer MEDICARE, SELFPAY ==
[2025-05-30 17:10] LABS: Appearance Urine UA CLOUDY; Bilirubin Urine UA NEGATIVE (NEGATIVE); Color Urine UA YELLOW; Glucose Urine UA NEGATIVE (Negative); Ketones Urine UA TRACE (NEGATIVE); Leukocyte Esterase Urine UA 3+ (NEGATIVE); Nitrite Urine UA NEGATIVE (Negative); Occult Blood Urine UA 2+ (Negative); Protein Urine UA 1+ (Negative); Specific Gravity Urine UA 1.015 (1.000-1.035); Urobilinogen Urine UA 0.2 E.U./dL (0.2)
[2025-05-30 17:18] LABS: pH Urine UA 6.5 (4.5-8.0)
[2025-05-30 17:26] LABS: Culture Indicated Urine Specimen Cultured
== END ==
PROVIDERS: PCP Family Medicine; Referring Provider Family Medicine; Visit Provider Family Medicine
DX: R39.9 Unspecified symptoms and signs involving the genitourinary system (principal); N39.0 Urinary tract infection, site not specified
CPT/HCPCS: 81001; 87077; 87086